=== PATIENT | female | born 2000 | race Caucasian/White ===

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

== ENCOUNTER 2019-02-15 19:16 | Emergency (ER) | payer OTHER ==
[~2019-02-15] VITALS: Ht 167.6 cm; Wt 95.0 kg
[~2019-02-15 19:16] MED LIST: MUPI15CR9 TOP; NAPR-985 PO
[2019-02-15 19:23] VITALS: Ht 167.6 cm; Wt 95.0 kg
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
== END 2019-02-15 19:41 | disposition home or self-care (01) ==
LOC: E/R 19:16
DX: M25.562 Pain in left knee (principal); L73.9 Follicular disorder, unspecified
CPT/HCPCS: 99283